=== PATIENT | female | born 1990 | race Caucasian/White ===

== ENCOUNTER → 2016-09-14 00:14 | Observation (INO) ==
[2016-09-13 23:17] LABS: Bilirubin,Urine Small (Negative); Blood,Urine Negative (Negative); Clarity,Urine Cloudy (Clear); Color,Urine Dark Yellow (Yellow); Glucose,Urine (UA) Normal (Normal); Ketones,Urine Negative (Negative); Leukocyte Esterase,Urine Negative (Negative); Nitrite,Urine Negative (Negative); Protein,Urine Negative (Neg-Trace); Specific Gravity,Urine > 1.030 (1.010-1.025); Urobilinogen,Urine Normal (Normal)
[2016-09-13 23:18] LABS: Bacteria,Urine Few per hpf (None-Few); Hyaline Casts,Urine None Seen per lpf (None-Few); Squamous Epithelial Cell,Urine Many per lpf (None-Few)
[2016-09-13 23:29] LABS: Calcium Oxalate Crystals,Urine Present
--- NOTE | 2016-09-14 07:31 | OB/GYN Progress Note ---
Date of Encounter: 09/14/16 Time of Encounter: 00:00 - Assessment and Plan (1) Back pain affecting in second trimester Status: Acute DDx: pulled muscle vs kidney stone. UA unremarkable. Comfort measures and warning signs discussed. Discharge home. (2) 22 weeks gestation of Status: Acute Subjective - Subjective Interval history: 26 year-old presenting at 22w5d with c/o lower left side back pain and pelvic pressure. No other complaints. Antepartum ROS: movement normal, no loss of fluid, no vaginal bleeding, no contractions Objective - Vital Signs Vital Signs: Intake and Output 09/13/16 09/13/16 09/14/16 15:59 23:59 07:59 Other: Weight 81.9 kg - Exam FHR comments: FHT reassuring for GA Abdomen: Present: soft Comments: Negative CVAT - Labs Labs: Abnormal lab results Urine Clarity Cloudy (Clear) A 09/13/16 23:00 Ur Specific [place] > 1.030 (1.010-1.025) H 09/13/16 23:00 Urine Bilirubin Small (Negative) H 09/13/16 23:00 Urine Microscopic WBC 5-15 per hpf (0-3) H 09/13/16 23:00 Ur Squamous Epith Cells Many per lpf (None-Few) H 09/13/16 23:00 Ur Culture Indicated? YES (NO) A 09/13/16 23:00
== END | disposition home or self-care (01) ==
LOC: 1NENULAB
PROVIDERS: ADMIT Registered Nurse; ATTEND Registered Nurse

== ENCOUNTER 2016-12-11 08:27 | Observation (INO) ==
[2016-12-11 09:10] LABS: Bilirubin,Urine Negative (Negative); Blood,Urine Negative (Negative); Color,Urine Dark Yellow (Yellow); Glucose,Urine (UA) Normal (Normal); Ketones,Urine Trace mg/dL (Negative); Leukocyte Esterase,Urine Trace (Negative); Nitrite,Urine Positive (Negative); Protein,Urine Negative (Neg-Trace); Specific Gravity,Urine 1.026 (1.010-1.025); Urobilinogen,Urine Normal (Normal)
[2016-12-11 09:13] LABS: Bacteria,Urine Many per hpf (None-Few); Hyaline Casts,Urine None Seen per lpf (None-Few); Squamous Epithelial Cell,Urine Many per lpf (None-Few)
[2016-12-11 09:15] LABS: Amphetamine Screen,Urine Negative ng/mL (Cutoff=1000); Barbiturate Screen,Urine Negative ng/mL (Cutoff=200); Benzodiazepines Screen,Urine Negative ng/mL (Cutoff=200); Cannabinoid Screen,Urine Negative ng/mL (Cutoff = 50); Cocaine Screen,Urine Negative ng/mL (Cutoff= 300); Opiate Screen,Urine Negative ng/mL (Cutoff=300); Phencyclidine Screen,Urine Negative ng/mL (Cutoff=25)
[2016-12-11 09:19] LABS: Clarity,Urine Slightly Cloudy (Clear)
[2016-12-11 09:29] LABS: Calcium Oxalate Crystals,Urine Present
--- NOTE | 2016-12-11 11:09 | OB/GYN History & Physical ---
Date of Encounter: 12/11/16 Time of Encounter: 10:50 Assessment and Plan (1) 35 weeks gestation of Current visit: Yes Status: Acute (2) Uterine contractions Current visit: Yes Status: Acute - NST reactive - UA with high specific gravity, +nitrites, trace leukocytes - SVE closed x 2 exams. Discharge home with labor precautions. History of Present Illness Chief complaint: Contractions HPI: Ms. Hart is a 26 year old female at 35 3/7 weeks gestation that presents for labor evaluation. She says that she has been getting contractions starting at 4:00 am that were moderate and 10 minutes apart. She went to sleep at 6:00 am and woke up 45 minutes later with the same contractions. She admits to good movement but denies vaginal fluid leakage or bleeding. She denies any EDWARDS but admits to occasional vision changes for the past month in the form of "seeing stars". She denies any chest pain, fever, chills, nausea, vomiting, dysuria, or diarrhea. GBS: unknown T. Pallidum Ab: positive Rubella Ab: positive Varicella Ab: positive Blood Type: B+ HepBSAb: non-reactive (07/10/16) HIV: non-reactive Past Med Surg Social Fam HX - Past Medical History Medical history: asthma Psychiatric history: no psych history - Social History Smoking Status: Former smoker Smokeless Tobacco Status: No Alcohol use: none Drug use: none - Family History Mother Adopted: No Family Member Ethnicity: Non- Living Status: Still Living Hx Family Cancer: Yes (breast cancer) Obstetrical History - Pregnancies : 3 Para: 2 Term: 2 : 0 Ab's: 0 Livin Medications and Allergies 3 Allergy/AdvReac Type Severity Reaction Status Date / Time No Known Allergies Allergy Verified 04/07/15 19:13 Exam - Vital Signs Vital signs: BP: 108/63 HR: 101 FHR: 133 [place]: 42 - Constitutional Constitutional: well developed, well nourished, no acute distress, average body habitus - Lungs Respiratory exam: CTAB - Cardiovascular Cardiovascular exam: RRR, +S1, +S2 - Abdomen Abdomen: Present: bowel sounds normal, gravid, non tender - Extremities Extremities exam: full ROM, normal capillary refill, normal inspection, radial pulses palpable and symmetrical Deep Tendon Reflex Grade: 2+ Normal Results Abnormal lab results Urine Clarity Slightly Cloudy (Clear) A 12/11/16 09:00 Ur Specific [place] 1.026 (1.010-1.025) H 12/11/16 09:00 Urine Ketones Trace mg/dL (Negative) H 12/11/16 09:00 Urine Nitrite Positive (Negative) A 12/11/16 09:00 Ur Leukocyte Esterase Trace (Negative) H 12/11/16 09:00 Urine Microscopic WBC 5-15 per hpf (0-3) H 12/11/16 09:00 Ur Squamous Epith Cells Many per lpf (None-Few) H 12/11/16 09:00 Urine Bacteria Many per hpf (None-Few) H 12/11/16 09:00 Ur Culture Indicated? YES (NO) A 12/11/16 09:00 All other labs normal. - VTE Reasons for not Prescribing Prophylaxis: Treatment not Indicated - Low risk for VTE
== END 2016-12-11 13:45 | disposition home or self-care (01) ==
LOC: 1NENULAB
PROVIDERS: ADMIT Obstetrics & Gynecology; ATTEND Obstetrics & Gynecology

== ENCOUNTER → 2020-07-10 11:56 | Observation (INO) ==
[2020-07-09 23:20] LABS: Hematocrit 36.3 % (35.3-44.9); Hemoglobin 11.8 g/dL (11.5-15.4); Mean Corpuscular HGB Conc 32.5 g/dL (31.6-35.5); Mean Corpuscular Hemoglobin 28.7 pg (28.0-33.3); Mean Corpuscular Volume 88.3 fL (83.0-100.0); Mean Platelet Volume 11.6 fL (9.4-12.4); Platelet Count 159 K/mcL (140-400); Red Blood Count 4.11 M/mcL (3.82-4.97); Red Cell Distribution Width 15.1 % (11.5-14.5); White Blood Count 8.8 K/mcL (4.3-11.1)
[2020-07-09 23:29] LABS: Prothrombin Time 11.2 Seconds (9.4-12.1)
[2020-07-09 23:32] LABS: Activated Partial Thrombo Time 25.9 Seconds (26.0-36.0)
[2020-07-09 23:40] LABS: Alanine Aminotransferase 8 Units/L (7-52); Albumin 3.4 g/dL (3.5-5.7); Albumin/Globulin Ratio 1.2 (1.1-2.2); Alkaline Phosphatase 120 Units/L (34-104); Amylase 22 Units/L (29-103); Aspartate Amino Transferase 10 Units/L (13-39); BUN/Creatinine Ratio 13 (6-26); Bilirubin,Direct 0.1 mg/dL (0.0-0.2); Bilirubin,Indirect 0.2 mg/dL (0.0-1.0); Bilirubin,Total 0.3 mg/dL (0.3-1.0); Blood Urea Nitrogen 6 mg/dL (6-20); Calcium 9.4 mg/dL (8.6-10.3); Carbon Dioxide 22 mEq/L (23-29); Chloride 106 mEq/L (98-107); Globulin 2.9 g/dL (2.4-3.5); Glucose 94 mg/dL (70-105); Lipase 25 Units/L (11-82); Osmolality,Calculated 279 (280-300); Potassium 3.6 mEq/L (3.5-5.1); Sodium 136 mEq/L (136-145); Total Protein 6.3 g/dL (6.4-8.9); eGFR For African Americans > 60 (> 60); eGFR For Non-African Americans > 60 (> 60)
== END | disposition home or self-care (01) ==
LOC: 1NENULAB
PROVIDERS: ADMIT Obstetrics & Gynecology; ATTEND Obstetrics & Gynecology

== ENCOUNTER 2020-08-09 13:53 | Inpatient (IN) ==
[2020-08-09] MEDS ORDERED: Azithromycin 500 MG in 0.9 % Sodium Chloride 250 ML IVPB PRN (14:38)
[2020-08-09] MEDS ORDERED: Naloxone 0.4 MG/ML INJ IVP PRN (14:38)
[2020-08-09] MEDS ORDERED: Metoclopramide 10 MG/2 ML VIAL IVP PRN (14:38)
[2020-08-09] MEDS ORDERED: Famotidine 20 MG/2 ML VIAL IVP PRN (14:38)
[2020-08-09] MEDS ORDERED: Lidocaine 1% 20 ML MDV INFILT PRN (14:38)
[2020-08-09] MEDS ORDERED: Ondansetron 4 MG/2 ML VIAL IVP PRN (14:38)
[2020-08-09] MEDS ORDERED: *HR* Nalbuphine 10 MG/ML AMPUL IV PRN (14:38)
[2020-08-09] MEDS ORDERED: Ringers Solution, Lactated 1,000 ML IVC SCH (14:45)
[2020-08-09 15:47] LABS: Basophils # 0.1 K/mcL (0.0-0.2); Basophils % 0.5 %; Eosinophils # 0.1 K/mcL (0.0-0.6); Eosinophils % 0.8 %; Hematocrit 36.9 % (35.3-44.9); Hemoglobin 11.9 g/dL (11.5-15.4); Immature Granulocytes % 0.6 % (0-4); Lymphocytes # 2.4 K/mcL (0.6-4.6); Lymphocytes % 23.9 %; Mean Corpuscular HGB Conc 32.2 g/dL (31.6-35.5); Mean Corpuscular Hemoglobin 28.3 pg (28.0-33.3); Mean Corpuscular Volume 87.9 fL (83.0-100.0); Monocytes # 0.5 K/mcL (0.0-1.3); Monocytes % 5.4 %; Neutrophils # 6.9 K/mcL (1.6-8.9); Platelet Count 152 K/mcL (140-400); Red Cell Distribution Width 15.7 % (11.5-14.5); Segmented Neutrophils % 68.8 %
[2020-08-09 15:57] LABS: Amphetamine Screen,Urine Negative ng/mL (Cutoff=1000); Barbiturate Screen,Urine Negative ng/mL (Cutoff=200); Benzodiazepines Screen,Urine Negative ng/mL (Cutoff=200); Cannabinoid Screen,Urine Negative ng/mL (Cutoff = 50); Cocaine Screen,Urine Negative ng/mL (Cutoff= 300); Opiate Screen,Urine Negative ng/mL (Cutoff=300); Phencyclidine Screen,Urine Negative ng/mL (Cutoff=25)
[2020-08-09] MEDS ORDERED: Oxytocin 20 units/ LR 1000 mL 20 UNIT/1,000 ML BAG IVC SCH (16:00)
[2020-08-09] MEDS ORDERED: *HR* FentaNYL (PF) 100 MCG/2 ML VIAL ONE (19:21)
[2020-08-09] MEDS ORDERED: Ropivacaine/PF 0.2% 20 ML VIAL ONE (19:21)
[2020-08-09] MEDS ORDERED: Epidural Premix (fent/bupiv) 110 ML EP ONE (19:22)
[2020-08-09] MEDS ORDERED: *HR* FentaNYL (PF) 100 MCG/2 ML VIAL EP ONE (21:06)
[2020-08-09] MEDS ORDERED: Ropivacaine/PF 0.2% 20 ML VIAL EP ONE (21:06)
[2020-08-09] MEDS ORDERED: EPHEDrine 50 MG/ML VIAL IVP PRN (21:06)
[2020-08-09] MEDS ORDERED: Epidural Premix (fent/bupiv) 110 ML EP SCH (21:15)
[2020-08-10] MEDS ORDERED: Benzocaine/Menthol 56 GM AEROSOL SPRAY TP PRN (07:29)
[2020-08-10] MEDS ORDERED: Oxytocin 20 units/ LR 1000 mL 20 UNIT/1,000 ML BAG IVC ONE (07:29)
[2020-08-10] MEDS ORDERED: Rho Immune Globulin 1,500 UNIT SYRINGE IM PRN (07:29)
[2020-08-10] MEDS ORDERED: Oxytocin 20 units/ LR 1000 mL 20 UNIT/1,000 ML BAG IVC SCH (07:29)
[2020-08-10] MEDS ORDERED: Measles/Mumps/Rubella Vacc 0.5 ML VIAL SQ PRN (07:29)
[2020-08-10] MEDS: Prenatal Vit/FA 1 EACH TABLET PO SCH (08:18)
[2020-08-10] MEDS: Acetaminophen 325 MG TABLET PO PRN ×2 (08:20→20:04)
[2020-08-10] MEDS: Ibuprofen 600 MG TABLET PO PRN ×2 (14:09→22:50)
[2020-08-11] MEDS: Acetaminophen 325 MG TABLET PO PRN (02:21)
[2020-08-11] MEDS: Ibuprofen 600 MG TABLET PO PRN (06:43)
[2020-08-11 07:31] LABS: Basophils # 0.1 K/mcL (0.0-0.2); Basophils % 0.6 %; Eosinophils # 0.1 K/mcL (0.0-0.6); Eosinophils % 1.7 %; Hematocrit 33.7 % (35.3-44.9); Hemoglobin 10.8 g/dL (11.5-15.4); Immature Granulocytes % 0.7 % (0-4); Lymphocytes # 3.3 K/mcL (0.6-4.6); Lymphocytes % 39.2 %; Mean Corpuscular Hemoglobin 28.3 pg (28.0-33.3); Mean Corpuscular Volume 88.2 fL (83.0-100.0); Mean Platelet Volume 12.1 fL (9.4-12.4); Monocytes # 0.5 K/mcL (0.0-1.3); Monocytes % 5.4 %; Neutrophils # 4.4 K/mcL (1.6-8.9); Platelet Count 130 K/mcL (140-400); Red Blood Count 3.82 M/mcL (3.82-4.97); Red Cell Distribution Width 15.3 % (11.5-14.5); Segmented Neutrophils % 52.4 %; White Blood Count 8.4 K/mcL (4.3-11.1)
[2020-08-11] MEDS: Prenatal Vit/FA 1 EACH TABLET PO SCH (07:47)
[2020-08-11 08:09] VITALS: BP 109/73
== END 2020-08-11 12:02 | disposition home or self-care (01) | DRG 560 ==
LOC: 1NENULAB 13:53 → 1NENUOBS 08-10 07:43
PROVIDERS: ADMIT Obstetrics & Gynecology; ATTEND Obstetrics & Gynecology